=== PATIENT | female | born 1935 | race Caucasian/White ===

== ENCOUNTER 2017-08-29 22:22 | Emergency (ER) | payer MEDICARE ==
[2017-08-29 22:42] VITALS: BP 171/64
--- NOTE | 2017-08-29 23:56 | EDM.PDOC ---
ED HPI GENERAL MEDICAL PROBLEM - General Chief Complaint: Lower Extremity Injury/Pain Stated Complaint: FELL Time Seen by Provider: 08/29/17 22:45 Source of Information: Reports: Patient, Family History Limitations: Reports: No Limitations - History of Present Illness INITIAL COMMENTS - FREE TEXT/NARRATIVE: pt arrived with acute pain behind the knee cap of the rt knee. She tripped over hr cat tonight and she twisted the knee. She does not feel any pain in the hip area. Onset: Today, Sudden Duration: Hour(s): Location: Reports: Lower Extremity, Right Associated Symptoms: Reports: No Other Symptoms Right Knee Pain Score (Numeric/FACES): 5 - Related Data Allergies Allergy/AdvReac Type Severity Reaction Status Date / Time No Known Allergies Allergy Verified 08/29/17 22:54 Home Meds: Home Meds Aspirin [Halfprin] 81 mg PO DAILY 04/16/15 [History] Metoprolol Tartrate [Metoprolol Tartrate] 25 mg PO DAILY 04/16/15 [History] Ranitidine [Zantac] 150 mg PO DAILY PRN 04/16/15 [History] Past Medical History HEENT History: Reports: Impaired Vision Cardiovascular History: Reports: CAD, Hypertension, Prior Cardiac Arrest Gastrointestinal History: Reports: PUD Musculoskeletal History: Reports: Fracture Other Musculoskeletal History: 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 Other Endocrine/Metabolic History: Lymes disease - Past Surgical History Other HEENT Surgeries/Procedures: teeth removed Cardiovascular Surgical History: Reports: Coronary Artery Stent GI Surgical History: Reports: Other (See Below) Musculoskeletal Surgical History: Reports: Other (See Below) Other Musculoskeletal Surgeries/Procedures:: ankle surgery Social & Family History - Tobacco Use Smoking Status *Q: Light Tobacco Smoker Years of Tobacco use: 64 Packs/Tins Daily: 0.5 - Alcohol Use Days Per Week of Alcohol Use: 0 - Recreational Drug Use Recreational Drug Use: No Review of Systems - Review of Systems Review Of Systems: See Below Constitutional: Reports: No Symptoms Eyes: Reports: No Symptoms Ears: Reports: No Symptoms Nose: Reports: No Symptoms Mouth/Throat: Reports: No Symptoms Respiratory: Reports: No Symptoms Cardiovascular: Reports: No Symptoms GI/Abdominal: Reports: No Symptoms Genitourinary: Reports: No Symptoms Musculoskeletal: Reports: Other (Pt has pain in the rt knee. ) ED EXAM, GENERAL - Physical Exam Exam: See Below Free Text/Narrative:: Pt arrived with pain behind the rt knee cap. She hurts most when she moves the joint. Exam Limited By: No Limitations General Appearance: Alert, Anxious, Mild Distress Ears: Normal TMs Nose: Normal Inspection Throat/Mouth: Normal Inspection Head: Atraumatic Neck: Normal Inspection Respiratory/Chest: No Respiratory Distress Cardiovascular: Regular Rate, Rhythm GI/Abdominal: Soft, Non-Tender (Female) Exam: Deferred Rectal (Female) Exam: Deferred Back Exam: Other (pt has a marked scoliosis of the t and lumbar spine. ) Extremities: Other (pt has pain behind the rt knee cap. There is minimal swelling present. She has some tenderness over the lower femur and upper tib- fib area. ) Neurological: Alert, Oriented Psychiatric: Normal Affect Course - Vital Signs Last Recorded V/S: Last Vital Signs Temp 37.2 C 08/29/17 22:53 Pulse 87 08/29/17 22:53 Resp 16 08/29/17 22:53 BP 171/64 H 08/29/17 22:53 Pulse Ox 98 08/29/17 22:53 - Orders/Labs/Meds Orders: Active Orders 24 hr Category Date Time Status Femur Min 2V Rt [CR] Stat Exams 08/29/17 23:15 Taken Knee Min 4V Rt [CR] Stat Exams 08/29/17 23:15 Taken Tibia Fibula Rt [CR] Stat Exams 08/29/17 23:15 Taken - Re-Assessments/Exams Free Text/Narrative Re-Assessment/Exam: 08/30/17 00:02 xrays of the femur, tib-fib and knee were obtained. These did not reveal a fracture. Departure - Departure Time of Disposition: 23:54 Disposition: Home, Self-Care 01 Condition: Fair Clinical Impression: Right knee sprain - Discharge Information Referrals: Hernandez Chance MD [Primary Care Provider] - Forms: ED Department Discharge Care Plan Goals: knee imoblizer, cont to use the cane, ice to the knee, use alieve or motrin. Pt did not want other pain meds. If persistent pain may need further evaluation with an MRI. - My Orders Last 24 Hours: My Active Orders 08/29/17 23:15 Femur Min 2V Rt [CR] Stat Knee Min 4V Rt [CR] Stat Tibia Fibula Rt [CR] Stat - Assessment/Plan Last 24 Hours: My Active Orders 08/29/17 23:15 Femur Min 2V Rt [CR] Stat Knee Min 4V Rt [CR] Stat Tibia Fibula Rt [CR] Stat
--- NOTE | 2017-08-30 10:25 | CR ---
Femur Min 2V Rt, Knee Min 4V Rt, Tibia Fibula Rt HISTORY: Pain COMPARISON: None FINDINGS: The right femur appears normal. The right tibia and fibula demonstrate prior internal fixat ion of the medial and lateral malleolus. No fracture or bony destructive process seen. The right knee demonstrates a very mild loss of joint space medially. No fracture or effusion. No bon y destructive process Impression: 1. Negative right femur, knee and tibia-fibula.
== END 2017-08-30 00:23 | disposition home or self-care (01) ==
LOC: JP.ED 22:22
DX: S83.91XA Sprain of unspecified site of right knee, initial encounter (principal); I10 Essential (primary) hypertension; I25.10 Atherosclerotic heart disease of native coronary artery without angina pectoris; Z95.5 Presence of coronary angioplasty implant and graft; F17.210 Nicotine dependence, cigarettes, uncomplicated; Z79.82 Long term (current) use of aspirin; Z79.899 Other long term (current) drug therapy; W01.0XXA Fall on same level from slipping, tripping and stumbling without subsequent striking against object, initial encounter; X50.1XXA Overexertion from prolonged static or awkward postures, initial encounter
CPT/HCPCS: 73552-26-LT; 73552-RT; 73564-26-RT; 73564-RT; 73590-26-RT; 73590-RT; 99283; 99284

== ENCOUNTER 2018-10-01 11:00 | Emergency (ER) | payer MEDICARE ==
[2018-10-01] MEDS ORDERED: Sodium Chloride 0.9% 10 ML Syringe FLUSH PRN (11:45)
[2018-10-01] MEDS ORDERED: Sodium Chloride 0.9% 1,000 ML IV ONE (12:13)
--- NOTE | 2018-10-01 12:57 | CRLCR ---
HISTORY: Chest pain. FINDINGS: Single AP view of the chest is provided. Comparison is made to previous study dated 03/10/2007. There is new increased density at the left lung base with blunting of the costophrenic angle consistent with likely pleural fluid. There could also be additional compressive atelectasis or pneumonia in the left lower lobe. The upper portion of the left lung and right lung are clear. There is no evidence for pneumothorax. Cardiac silhouette size appears enlarged but this could be due to AP magnification. There is a severe S-shaped scoliosis of the thoracolumbar spine which is noted previously. IMPRESSION: New abnormal density at the left lung base consistent with moderate pleural effusion. There may also be an additional abnormality such as compressive atelectasis or pneumonia in the left lower lobe. Dictated by Peng Perez MD @ Oct 01 2018 12:56PM Signed by Dr. Peng Perez @ Oct 01 2018 12:56PM
--- NOTE | 2018-10-01 14:04 | EDM.PDOC ---
ED HPI GENERAL MEDICAL PROBLEM - General Chief Complaint: General Stated Complaint: HARD TIME CATCHING BREATHE Time Seen by Provider: 10/01/18 11:38 Source of Information: Reports: Patient, Family History Limitations: Reports: No Limitations - History of Present Illness INITIAL COMMENTS - FREE TEXT/NARRATIVE: This lady comes in complaining of anxiety. She doesn't know why she is anxious she just doesn't feel right. She did mention that she can a felt this way when she had a heart attack several years ago. Her daughter notices that she looks a little bit pale today. Otherwise she feels fine review of systems no problems with eyes ears nose or throat. No chest pain or palpitations no cough or shortness of breath no GI symptoms such as nausea or vomiting. No urinary symptoms and no neurologic symptoms. - Related Data Allergies Allergy/AdvReac Type Severity Reaction Status Date / Time No Known Allergies Allergy Verified 10/01/18 11:12 Home Meds: Home Meds Aspirin [Halfprin] 81 mg PO DAILY 04/16/15 [History] Metoprolol Tartrate 25 mg PO DAILY 04/16/15 [History] Ranitidine [Zantac] 150 mg PO DAILY PRN 04/16/15 [History] Past Medical History HEENT History: Reports: Impaired Vision Cardiovascular History: Reports: CAD, High Cholesterol, Hypertension, Prior Cardiac Arrest, Stents Gastrointestinal History: Reports: PUD [employer]ER History: Reports: Musculoskeletal History: Reports: Fracture Other Musculoskeletal History: 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 Psychiatric History: Reports: Anxiety Other Endocrine/Metabolic History: Lymes disease Hematologic History: Reports: Blood Transfusion(s) - Infectious Disease History Infectious Disease History: Reports: Chicken Pox, Measles, Mumps, Other (See Below) Other Infectious Disease History: Polio - Past Surgical History Head Surgeries/Procedures: Reports: None HEENT Surgical History: Reports: Other (See Below) Other HEENT Surgeries/Procedures: teeth removed Cardiovascular Surgical History: Reports: Coronary Artery Stent GI Surgical History: Reports: Other (See Below) Musculoskeletal Surgical History: Reports: Other (See Below) Other Musculoskeletal Surgeries/Procedures:: ankle surgery Dermatological Surgical History: Reports: None Social & Family History - Family History Family Medical History: Noncontributory - Tobacco Use Smoking Status *Q: Current Every Day Smoker Years of Tobacco use: 67 Packs/Tins Daily: 0.5 Used Tobacco, but Quit: No - Caffeine Use Caffeine Use: Reports: Coffee - Recreational Drug Use Recreational Drug Use: No ED ROS GENERAL - Review of Systems Review Of Systems: ROS reveals no pertinent complaints other than HPI. (See review of systems at end of history of present illness) ED EXAM, GENERAL - Physical Exam Exam: See Below Exam Limited By: No Limitations General Appearance: Alert, No Apparent Distress (She seems comfortable. Slightly grayish look), Thin Eye Exam: Bilateral Eye: EOMI, PERRL Ears: Normal External Exam Nose: Normal Inspection Throat/Mouth: Normal Inspection, Normal Oropharynx Head: Atraumatic Neck: Normal Inspection Respiratory/Chest: Lungs Clear Cardiovascular: Normal Peripheral Pulses, Regular Rate, Rhythm Peripheral Pulses: 2+: Radial (L), Radial (R) GI/Abdominal: Normal Bowel Sounds, Soft, Non-Tender Back Exam: Normal Inspection Extremities: Normal Inspection Neurological: Alert, Oriented, CN II-XII Intact, Normal Cognition, No Motor/ Sensory Deficits Psychiatric: Normal Affect Skin Exam: Warm, Dry, Normal Color (See above) Course - Vital Signs Last Recorded V/S: Last Vital Signs Temp 35.9 C 10/01/18 11:19 Pulse 68 10/01/18 12:38 Resp 16 10/01/18 12:38 BP 150/72 H 10/01/18 15:26 Pulse Ox 96 10/01/18 12:38 - Orders/Labs/Meds Orders: Active Orders 24 hr Category Date Time Status EKG Documentation Completion [RC] ASDIRECTED Care 10/01/18 11:44 Active Sodium Chloride 0.9% [Saline Flush] Med 10/01/18 11:45 Active 10 ml FLUSH ASDIRECTED PRN Saline Lock Insert [OM.PC] Urgent Oth 10/01/18 11:45 Ordered EKG 12 Lead [EK] Urgent Ther 10/01/18 11:44 Ordered Medication Orders Sodium Chloride (Saline Flush) 10 ml FLUSH ASDIRECTED PRN PRN Reason: Keep Vein Open Last Admin: 10/01/18 12:01 Dose: 10 ml Labs: Laboratory Tests 10/01/18 10/01/18 10/01/18 Range/Units 11:45 11:55 11:55 WBC 6.6 (4.5-11.0) K/uL RBC 3.85 (3.30-5.50) M/uL Hgb 12.0 (12.0-15.0) g/dL Hct 36.3 (36.0-48.0) % MCV 94 (80-98) fL MCH 31 (27-31) pg MCHC 33 (32-36) % Plt Count 208 (150-400) K/uL Neut % (Auto) 70 H (36-66) % Lymph % (Auto) 22 L (24-44) % Cassia % (Auto) 7 H (2-6) % Eos % (Auto) 1 L (2-4) % Baso % (Auto) 1 (0-1) % Sodium 142 (140-148) mmol/L Potassium 3.7 (3.6-5.2) mmol/L Chloride 107 (100-108) mmol/L Carbon Dioxide 25 (21-32) mmol/L Anion Gap 9.6 (5.0-14.0) mmol/L BUN 14 (7-18) mg/dL Creatinine 0.9 (0.6-1.0) mg/dL Est Cr Clr Drug Dosing 35.21 mL/min Estimated GFR (MDRD) > 60 (>60) Glucose 97 (74-106) mg/dL Lactic Acid 1.2 (0.4-2.0) mmol/L Calcium 9.3 (8.5-10.1) mg/dL Total Bilirubin 0.6 (0.2-1.0) mg/dL AST 17 (15-37) U/L ALT 16 (12-78) U/L Alkaline Phosphatase 105 (46-116) U/L Troponin I 0.027 (0.000-0.056) ng/mL Total Protein 6.7 (6.4-8.2) g/dL Albumin 2.9 L (3.4-5.0) g/dL Globulin 3.8 H (2.3-3.5) g/dL Albumin/Globulin Ratio 0.8 L (1.2-2.2) Urine Color Urine Appearance Urine pH (4.5-8.0) Ur Specific [place] (1.008-1.030) Urine Protein (NEGATIVE) mg/dL Urine Glucose (UA) (NEGATIVE) mg/dL Urine Ketones (NEGATIVE) mg/dL Urine Occult Blood (NEGATIVE) Urine Nitrite (NEGATIVE) Urine Bilirubin (NEGATIVE) Urine Urobilinogen (NORMAL) mg/dL Ur Leukocyte Esterase (NEGATIVE) Urine RBC (0-5) Urine WBC (0-5) Ur Epithelial Cells Amorphous Sediment Urine Bacteria Urine Mucus 10/01/18 10/01/18 Range/Units 12:41 14:38 WBC (4.5-11.0) K/uL RBC (3.30-5.50) M/uL Hgb (12.0-15.0) g/dL Hct (36.0-48.0) % MCV (80-98) fL MCH (27-31) pg MCHC (32-36) % Plt Count (150-400) K/uL Neut % (Auto) (36-66) % Lymph % (Auto) (24-44) % Cassia % (Auto) (2-6) % Eos % (Auto) (2-4) % Baso % (Auto) (0-1) % Sodium (140-148) mmol/L Potassium (3.6-5.2) mmol/L Chloride (100-108) mmol/L Carbon Dioxide (21-32) mmol/L Anion Gap (5.0-14.0) mmol/L BUN (7-18) mg/dL Creatinine (0.6-1.0) mg/dL Est Cr Clr Drug Dosing mL/min Estimated GFR (MDRD) (>60) Glucose (74-106) mg/dL Lactic Acid (0.4-2.0) mmol/L Calcium (8.5-10.1) mg/dL Total Bilirubin (0.2-1.0) mg/dL AST (15-37) U/L ALT (12-78) U/L Alkaline Phosphatase (46-116) U/L Troponin I 0.025 (0.000-0.056) ng/mL Total Protein (6.4-8.2) g/dL Albumin (3.4-5.0) g/dL Globulin (2.3-3.5) g/dL Albumin/Globulin Ratio (1.2-2.2) Urine Color Yellow Urine Appearance Clear Urine pH 8.0 (4.5-8.0) Ur Specific [place] 1.010 (1.008-1.030) Urine Protein Negative (NEGATIVE) mg/dL Urine Glucose (UA) Normal (NEGATIVE) mg/dL Urine Ketones Negative (NEGATIVE) mg/dL Urine Occult Blood Negative (NEGATIVE) Urine Nitrite Negative (NEGATIVE) Urine Bilirubin Negative (NEGATIVE) Urine Urobilinogen Normal (NORMAL) mg/dL Ur Leukocyte Esterase Negative (NEGATIVE) Urine RBC 0-5 (0-5) Urine WBC 0-5 (0-5) Ur Epithelial Cells Many Amorphous Sediment Moderate Urine Bacteria Not seen Urine Mucus Not seen Meds: Medications Generic Name Dose Route Start Last Admin Trade Name Freq PRN Reason Stop Dose Admin Sodium Chloride 10 ml 10/01/18 11:45 10/01/18 12:01 Saline Flush FLUSH 10 ml ASDIRECTED PRN Administration Keep Vein Open Discontinued Medications Generic Name Dose Route Start Last Admin Trade Name Freq PRN Reason Stop Dose Admin Sodium Chloride 1,000 mls @ 999 mls/hr 10/01/18 12:13 10/01/18 12:19 Normal Saline IV 10/01/18 13:13 999 mls/hr .BOLUS ONE Administration - Re-Assessments/Exams Free Text/Narrative Re-Assessment/Exam: 10/01/18 13:56 We were having low blood pressures on this lady so I began giving her a fluid bolus prior to the chest x-ray. Lipid pressures continue to be low even after a liter of normal saline. Her color did improve a lot. At no time has she had any mental status changes. She's always been quite alert and comfortable. The nurse attempted to do a manual blood pressure but still got low readings. I did a manual blood pressures and got 130/70 on the left arm and 162/80 on the right arm. I immediately checked with the machine and the machine refused to register at all 10/01/18 15:43 initial EKG showed sinus rhythm at 69 bpm possibly some left atrial enlargement there is LVH and interventricular conduction delay with a repolarization abnormality slightly prolonged QT interval definitely no ischemic changes here. The only old EKG was 2013 when she had her [place]. At time of discharge I repeated a three-hour troponin which is negative. She says she feels pretty much back to normal. She doesn't want any kind of medication in case she has more anxiety at home. She seems happy with our treatment Departure - Departure Time of Disposition: 15:44 Disposition: Home, Self-Care 01 Condition: Fair Clinical Impression: Acute anxiety - Discharge Information Referrals: Hernandez Chance MD [Primary Care Provider] - Forms: ED Department Discharge Additional Instructions: Continue all your usual medications. If you have more problems you're welcome to return to the ER - My Orders Last 24 Hours: My Active Orders 10/01/18 11:44 EKG Documentation Completion [RC] ASDIRECTED EKG 12 Lead [EK] Urgent 10/01/18 11:45 Sodium Chloride 0.9% [Saline Flush] 10 ml FLUSH ASDIRECTED PRN Saline Lock Insert [OM.PC] Urgent - Assessment/Plan Last 24 Hours: My Active Orders 10/01/18 11:44 EKG Documentation Completion [RC] ASDIRECTED EKG 12 Lead [EK] Urgent 10/01/18 11:45 Sodium Chloride 0.9% [Saline Flush] 10 ml FLUSH ASDIRECTED PRN Saline Lock Insert [OM.PC] Urgent
[2018-10-01 15:26] VITALS: BP 150/72
== END 2018-10-01 15:52 | disposition home or self-care (01) ==
LOC: JP.ED 11:00
DX: F41.9 Anxiety disorder, unspecified (principal); I10 Essential (primary) hypertension; E78.00 Pure hypercholesterolemia, unspecified; F17.210 Nicotine dependence, cigarettes, uncomplicated; Z79.82 Long term (current) use of aspirin; Z79.899 Other long term (current) drug therapy
CPT/HCPCS: 36415; 71045; 80053; 81001; 83605; 84484; 85025; 93005; 99284; J7030

== ENCOUNTER 2018-10-03 10:50 | Emergency (ER) | payer MEDICARE ==
[2018-10-03] MEDS ORDERED: ALPRAZolam 0.25 MG Tab PO ONE (11:18)
--- NOTE | 2018-10-03 11:58 | EDM.PDOC ---
ED HPI GENERAL MEDICAL PROBLEM - General Chief Complaint: General Stated Complaint: EXTREME ANXIETY Time Seen by Provider: 10/03/18 11:45 Source of Information: Reports: Patient, Family, Old Records, RN History Limitations: Reports: No Limitations - History of Present Illness INITIAL COMMENTS - FREE TEXT/NARRATIVE: 83 yo female was given a few alprazolam 0.125 mg doses yesterday with the understanding that she would see Dr. Chance today. She ran out and cannot see him until tomorrow. He would not give her more, but asked that she return to the ER for additional doses if needed. She states she felt much better with this med. She states the current anxiety is new and has no idea why she is having this. She also has not been sleeping for sometime, with this new med she is getting a few hrs of sleep. She has no hx of HTN above 140 systolic and is no longer on the metoprolol tartrate listed in our EMR. 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 (see below) (none) - Related Data Allergies Allergy/AdvReac Type Severity Reaction Status Date / Time No Known Allergies Allergy Verified 10/03/18 10:56 Home Meds: Home Meds Aspirin [Halfprin] 81 mg PO DAILY 04/16/15 [History] Metoprolol Tartrate 25 mg PO DAILY 04/16/15 [History] Ranitidine [Zantac] 150 mg PO DAILY PRN 04/16/15 [History] ALPRAZolam [Alprazolam] 0.125 mg PO TID PRN 10/03/18 [History] Past Medical History HEENT History: Reports: Impaired Vision Cardiovascular History: Reports: CAD, High Cholesterol, Hypertension, Prior Cardiac Arrest, Stents Gastrointestinal History: Reports: PUD [employer]ARD [employer]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 History: Reports: Musculoskeletal History: Reports: Fracture Other Musculoskeletal History: 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 Psychiatric History: Reports: Anxiety Other Endocrine/Metabolic History: Lymes disease Hematologic History: Reports: Blood Transfusion(s) - Infectious Disease History Infectious Disease History: Reports: Chicken Pox, Measles, Mumps, Other (See Below) Other Infectious Disease History: Polio - Past Surgical History Head Surgeries/Procedures: Reports: None HEENT Surgical History: Reports: Other (See Below) Other HEENT Surgeries/Procedures: teeth removed Cardiovascular Surgical History: Reports: Coronary Artery Stent GI Surgical History: Reports: Other (See Below) Musculoskeletal Surgical History: Reports: Other (See Below) Other Musculoskeletal Surgeries/Procedures:: ankle surgery Dermatological Surgical History: Reports: None Social & Family History - Family History Family Medical History: Noncontributory - Tobacco Use Smoking Status *Q: Former Smoker Used Tobacco, but Quit: Yes Month/Year Tobacco Last Used: . - Caffeine Use Caffeine Use: Reports: Coffee - Recreational Drug Use Recreational Drug Use: No ED ROS GENERAL - Review of Systems Review Of Systems: See Below Constitutional: Reports: No Symptoms HEENT: Reports: No Symptoms Respiratory: Reports: No Symptoms Cardiovascular: Reports: No Symptoms Endocrine: Reports: No Symptoms GI/Abdominal: Reports: No Symptoms : Reports: No Symptoms Musculoskeletal: Reports: No Symptoms Skin: Reports: No Symptoms Neurological: Reports: No Symptoms Psychiatric: Reports: Anxiety, Other (insomnia) ED EXAM, GENERAL - Physical Exam Exam: See Below Exam Limited By: No Limitations General Appearance: Alert, WD/WN, No Apparent Distress, Anxious Eye Exam: Bilateral Eye: Normal Inspection Ears: Normal External Exam, Normal Canal, Hearing Grossly Normal Ear Exam: Bilateral Ear: Auricle Normal, Canal Normal Nose: Normal Inspection, No Blood Throat/Mouth: Normal Inspection, Normal Lips, Normal Oropharynx, Normal Voice, No Airway Compromise Head: Atraumatic, Normocephalic Respiratory/Chest: No Respiratory Distress, Lungs Clear, Normal Breath Sounds, No Accessory Muscle Use Cardiovascular: Regular Rate, Rhythm, No Edema Back Exam: Normal Inspection Extremities: Normal Inspection, Normal Range of Motion, Non-Tender, No Pedal Edema Neurological: Alert, Oriented, CN II-XII Intact, Normal Cognition, No Motor/ Sensory Deficits Psychiatric: Normal Affect, Normal Mood Skin Exam: Warm, Dry, Intact, Normal Color, No Rash Course - Vital Signs Text/Narrative:: BP reassessed after the alprazolam, improved to 146 systolic Last Recorded V/S: Last Vital Signs Temp 36.1 C 10/03/18 11:05 Pulse 71 10/03/18 12:06 Resp 16 10/03/18 12:06 BP 146/89 H 10/03/18 12:06 Pulse Ox 97 10/03/18 11:05 - Orders/Labs/Meds Meds: Medications Discontinued Medications Generic Name Dose Route Start Last Admin Trade Name Sandra PRN Reason Stop Dose Admin Alprazolam 0.125 mg 10/03/18 11:18 10/03/18 11:43 Xanax PO 10/03/18 11:19 0.125 mg NOW ONE Administration Departure - Departure Time of Disposition: 12:10 Disposition: Home, Self-Care 01 Condition: Good Clinical Impression: Anxiety - Discharge Information *PRESCRIPTION DRUG MONITORING PROGRAM REVIEWED*: No *COPY OF PRESCRIPTION DRUG MONITORING REPORT IN PATIENT RADHA: No Instructions: Generalized Anxiety Disorder, Adult Referrals: Hernandez Chance MD [Primary Care Provider] - Forms: ED Department Discharge Additional Instructions: Take alprazolam as needed. See your doctor tomorrow as scheduled.
[2018-10-03 12:07] VITALS: BP 146/89
== END 2018-10-03 12:17 | disposition home or self-care (01) ==
LOC: JP.ED 10:50
DX: F41.9 Anxiety disorder, unspecified (principal); I25.10 Atherosclerotic heart disease of native coronary artery without angina pectoris; E78.00 Pure hypercholesterolemia, unspecified; I10 Essential (primary) hypertension; Z79.82 Long term (current) use of aspirin; Z79.899 Other long term (current) drug therapy; Z87.891 Personal history of nicotine dependence
CPT/HCPCS: 99283; A9270

== ENCOUNTER 2018-11-21 12:32 | Emergency (ER) | payer MEDICARE ==
--- NOTE | 2018-11-21 13:17 | EDM.PDOC ---
ED HPI GENERAL MEDICAL PROBLEM - General Chief Complaint: Respiratory Problem Stated Complaint: SOB, CONFUSSED Time Seen by Provider: 11/21/18 13:09 Source of Information: Reports: Patient, Family, Old Records, RN Notes Reviewed History Limitations: Reports: No Limitations - History of Present Illness INITIAL COMMENTS - FREE TEXT/NARRATIVE: 83-year-old female presents emergency department day complaint of shortness of breath and anxiety, she has a known history of underlying generalized anxiety disorder of which she is treated with both citalopram and lorazepam, she is trying to wean herself off the lorazepam has been on the citalopram for one month. This evening she had an event about to the morning felt she could not breathe and could not catch her wind then she became very panicky presents to the emergency department for further evaluation Bilateral Knee Pain Score (Numeric/FACES): 3 - Related Data Allergies Allergy/AdvReac Type Severity Reaction Status Date / Time No Known Allergies Allergy Verified 11/21/18 12:54 Home Meds: Home Meds Aspirin [Halfprin] 81 mg PO DAILY 04/16/15 [History] Ranitidine [Zantac] 150 mg PO DAILY PRN 04/16/15 [History] Citalopram Hydrobromide [Citalopram HBr] 10 mg PO DAILY 11/21/18 [History] LORazepam 0.5 mg PO TID 11/21/18 [History] Past Medical History HEENT History: Reports: Impaired Vision Cardiovascular History: Reports: CAD, High Cholesterol, Hypertension, Prior Cardiac Arrest, Stents Respiratory History: Reports: COPD Gastrointestinal History: Reports: PUD Genitourinary History: Reports: Urinary Incontinence 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: Musculoskeletal History: Reports: Fracture Other Musculoskeletal History: 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 Neurological History: Reports: TIA 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 Psychiatric History: Reports: Anxiety, Suicidal Ideation Other Endocrine/Metabolic History: Lymes disease Hematologic History: Reports: Blood Transfusion(s) - Infectious Disease History Infectious Disease History: Reports: Chicken Pox, Measles, Mumps, Other (See Below) Other Infectious Disease History: Polio - Past Surgical History Head Surgeries/Procedures: Reports: None HEENT Surgical History: Reports: Other (See Below) Other HEENT Surgeries/Procedures: teeth removed Cardiovascular Surgical History: Reports: Coronary Artery Stent Musculoskeletal Surgical History: Reports: Other (See Below) Other Musculoskeletal Surgeries/Procedures:: ankle surgery Dermatological Surgical History: Reports: None Social & Family History - Family History Family Medical History: Noncontributory - Tobacco Use Years of Tobacco use: 67 Tobacco Use Comment: current some day smoker - Caffeine Use Caffeine Use: Reports: Coffee - Recreational Drug Use Recreational Drug Use: No ED ROS GENERAL - Review of Systems Review Of Systems: See Below Constitutional: Reports: No Symptoms HEENT: Reports: No Symptoms Respiratory: Reports: Shortness of Breath. Denies: Wheezing, Cough, Sputum Cardiovascular: Reports: Dyspnea on Exertion. Denies: Chest Pain GI/Abdominal: Reports: No Symptoms ED EXAM, GENERAL - Physical Exam Exam: See Below Exam Limited By: No Limitations General Appearance: Alert, WD/WN, No Apparent Distress Respiratory/Chest: No Respiratory Distress, Lungs Clear, Normal Breath Sounds, No Accessory Muscle Use Cardiovascular: Regular Rate, Rhythm, No Murmur GI/Abdominal: Soft, Non-Tender Back Exam: Normal Inspection, Full Range of Motion. No: CVA Tenderness (R), CVA Tenderness (L) Psychiatric: Normal Affect, Normal Mood Course - Vital Signs Last Recorded V/S: Last Vital Signs Temp 97.2 F 11/21/18 12:52 Pulse 61 11/21/18 13:57 Resp 14 11/21/18 13:57 BP 138/69 11/21/18 13:57 Pulse Ox 95 11/21/18 13:57 - Orders/Labs/Meds Orders: Active Orders 24 hr Category Date Time Status Chest 2V [CR] Urgent Exams 11/21/18 13:13 Taken Labs: Laboratory Tests 11/21/18 11/21/18 Range/Units 13:25 13:25 WBC 5.6 (4.5-11.0) K/uL RBC 3.37 (3.30-5.50) M/uL Hgb 10.4 L (12.0-15.0) g/dL Hct 31.7 L (36.0-48.0) % MCV 94 (80-98) fL MCH 31 (27-31) pg MCHC 33 (32-36) % Plt Count 193 (150-400) K/uL Neut % (Auto) 63 (36-66) % Lymph % (Auto) 27 (24-44) % [place] % (Auto) 9 H (2-6) % Eos % (Auto) 1 L (2-4) % Baso % (Auto) 1 (0-1) % Sodium 139 L (140-148) mmol/L Potassium 3.3 L (3.6-5.2) mmol/L Chloride 106 (100-108) mmol/L Carbon Dioxide 27 (21-32) mmol/L Anion Gap 9.3 (5.0-14.0) mmol/L BUN 14 (7-18) mg/dL Creatinine 0.7 (0.6-1.0) mg/dL Est Cr Clr Drug Dosing 45.27 mL/min Estimated GFR (MDRD) > 60 (>60) Glucose 86 (74-106) mg/dL Calcium 8.9 (8.5-10.1) mg/dL Troponin I 0.034 (0.000-0.056) ng/mL Departure - Departure Time of Disposition: 14:41 Disposition: Home, Self-Care 01 Condition: Fair Clinical Impression: Panic attack - Discharge Information Referrals: Hernandez Chance MD [Primary Care Provider] - Forms: ED Department Discharge Additional Instructions: Increase your citalopram from 10 mg a day to 20 mg a day, use your lorazepam as needed for the increased anxiety and shortness of breath sensations try to follow-up with primary care in 5-7 days for reevaluation, call or return to the emergency department worsening of symptoms - My Orders Last 24 Hours: My Active Orders 11/21/18 13:13 Chest 2V [CR] Urgent - Assessment/Plan Last 24 Hours: My Active Orders 11/21/18 13:13 Chest 2V [CR] Urgent Plan: Assessment Acuity = acute Site and laterality = panic attack, again the patient with known history of chronic obstructive pulmonary disease and generalized anxiety disorder Etiology = generalized anxiety causing dyspnea Manifestations = none Location of injury = Home Lab values = hemoglobin low at 10.4 consistent normochromic anemia this is a change from 12.02 months ago potassium low at 3.3 consistent hypokalemia troponin was negative and chest x-ray shows I did review films myself I cannot appreciate any acute process, the official read from radiology is pending Plan She is going to increase her citalopram from 10 mg once a day to 20 mg once a day and use her lorazepam on a when necessary basis she'll try and follow-up with primary care in 7-10 days for reevaluation This note was dictated using [employer]! voice recognition software please call with any questions on syntax or grammar.
[2018-11-21 13:58] VITALS: BP 138/69
--- NOTE | 2018-11-21 15:12 | CR ---
CHEST RADIOGRAPHS PA AND LATERAL Indication: Shortness of breath comparison: 10/01/2018 Findings: Small to moderate size left greater right pleural effusion remain present. Bibasilar opacities remain present, slightly progressed since the prior exam. These may relate to atelectasis and/or infection. Cardiomediastinal silhouette is enlarged but is stable in size and contour. Mild pulmonary venous congestion and a background of chronic emphysematous change are again identified. Pulmonary venous congestion has progressed slightly since the prior exam. Severe dextroconvex thoracic scoliosis is again noted. Impression 1. Slight interval worsening in pulmonary venous congestion/mild interstitial edema and associated small left greater than right pleural effusions. Bibasilar opacities have also slightly progressed which may relate to atelectasis and/or infection. 2. Cardiomegaly. 3. Dextroconvex thoracic scoliosis.
== END 2018-11-21 14:53 | disposition home or self-care (01) ==
LOC: JP.ED 12:32
DX: F41.0 Panic disorder [episodic paroxysmal anxiety] (principal); J44.9 Chronic obstructive pulmonary disease, unspecified; I25.10 Atherosclerotic heart disease of native coronary artery without angina pectoris; E78.00 Pure hypercholesterolemia, unspecified; I10 Essential (primary) hypertension; F17.290 Nicotine dependence, other tobacco product, uncomplicated; Z79.82 Long term (current) use of aspirin; Z79.899 Other long term (current) drug therapy
CPT/HCPCS: 36415; 71046; 71046-26; 80048; 84484; 85025; 99285-25

== ENCOUNTER 2019-02-17 12:23 | Emergency (ER) | payer MEDICARE ==
[2019-02-17] MEDS ORDERED: Sodium Chloride 0.9% 1,000 ML IV ONE (12:29)
[2019-02-17] MEDS ORDERED: Sodium Chloride 0.9% 80 ML IV ONE (12:32)
[2019-02-17] MEDS ORDERED: Morphine 2 MG/ML Syringe IVPUSH ONE (12:35)
--- NOTE | 2019-02-17 12:43 | EDM.PDOC ---
ED HPI GENERAL MEDICAL PROBLEM - General Chief Complaint: Abdominal Pain Stated Complaint: SEVERE ABD PAIN Time Seen by Provider: 02/17/19 12:23 Source of Information: Reports: Family History Limitations: Reports: Other (in pain, unable to give hx) - History of Present Illness INITIAL COMMENTS - FREE TEXT/NARRATIVE: Chen is an 84 year old female, presents to the ED today via private vehicle with her daughter, daughter reports that patient woke up this morning and started to complain of severe abdominal pain. Patient had one episode of vomiting that was brown in color, had a normal BM that was not bloody or dark per daughter. Patient's pain progressed and daughter had to physically lift her out of the car to bring her here. Patient unable to give much hx secondary to pain, yelled and screamed of abdominal pain when assisting patient out of the car and again onto ED cart. Patient does have a hx of a gastric ulcer per her daughter and takes Zantac as needed. Patient prior to today was fine per daughter, no hx of aortic aneurysm per daughter. Movement exacerbates pain, patient denies any pain into her back. Onset: Today, Sudden Onset Time: 09:00 Right Middle Abdominal Pain Score (Numeric/FACES): 10 - Related Data Allergies Allergy/AdvReac Type Severity Reaction Status Date / Time No Known Allergies Allergy Verified 11/21/18 12:54 Home Meds: Home Meds Aspirin [Halfprin] 81 mg PO DAILY 04/16/15 [History] Ranitidine [Zantac] 150 mg PO DAILY PRN 04/16/15 [History] Citalopram Hydrobromide [Citalopram HBr] 10 mg PO DAILY 11/21/18 [History] LORazepam 0.5 mg PO TID 11/21/18 [History] Past Medical History HEENT History: Reports: Impaired Vision Cardiovascular History: Reports: CAD, High Cholesterol, Hypertension, Prior Cardiac Arrest, Stents Respiratory History: Reports: COPD Gastrointestinal History: Reports: PUD Genitourinary History: Reports: Urinary Incontinence 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: Musculoskeletal History: Reports: Fracture Other Musculoskeletal History: 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 Neurological History: Reports: TIA 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 Psychiatric History: Reports: Anxiety, Suicidal Ideation Other Endocrine/Metabolic History: Lymes disease Hematologic History: Reports: Blood Transfusion(s) - Infectious Disease History Infectious Disease History: Reports: Chicken Pox, Measles, Mumps, Other (See Below) Other Infectious Disease History: Polio - Past Surgical History Head Surgeries/Procedures: Reports: None HEENT Surgical History: Reports: Other (See Below) Other HEENT Surgeries/Procedures: teeth removed Cardiovascular Surgical History: Reports: Coronary Artery Stent Musculoskeletal Surgical History: Reports: Other (See Below) Other Musculoskeletal Surgeries/Procedures:: ankle surgery Dermatological Surgical History: Reports: None Social & Family History - Family History Family Medical History: Noncontributory - Caffeine Use Caffeine Use: Reports: Coffee ED ROS GENERAL - Review of Systems Review Of Systems: ROS reveals no pertinent complaints other than HPI. ED EXAM, GI/ABD - Physical Exam Exam: See Below Exam Limited By: Other (in pain, uncomfortable) General Appearance: Alert, Moderate Distress Eyes: Bilateral: EOMI Throat/Mouth: Other (dry mucus membranes) Head: Atraumatic Neck: Normal Inspection Respiratory/Chest: No Respiratory Distress, Lungs Clear Cardiovascular: Other (Irregular rhythm) GI/Abdominal Exam: Soft, Tender (mid abdomen, lower abdomen at midline, epigastric region) Neurological: Alert, Slow to Respond Skin Exam: Cool, Pallor EKG INTERPRETATION EKG Date: 02/17/19 Time: 13:20 Rhythm: NSR [place]: Normal P-Wave: Present QRS: LBBB ST-T: Normal Comparison: NA - No Prior EKG EKG Interpretation Comments: Occasional PAC Course - Vital Signs Last Recorded V/S: Last Vital Signs Temp 36.4 C 02/17/19 12:44 Pulse 68 02/17/19 13:18 Resp 26 H 02/17/19 13:18 BP 135/71 02/17/19 13:18 Pulse Ox 90 L 02/17/19 12:44 Chen is an 84 year old female, hx of [place], gastric ulcer, trigeminal neuralgia, presents to the ED today with her daughter with sudden onset of severe abdominal pain, nausea and vomiting. Please refer to HPI and focused exam. Patient arrives here pale, screaming in pain to her abdomen with any movement, pressure stable but initial concern for aortic dissection. Bedside US done shortly after arrival, no obvious rupture seen, ? free fluid in lower abdomen. Patient very tender with palpation to abdomen. With hx of gastric ulcer, concern for gastric perforation. PIV established, fluids initiated and patient to CT scan for chest, abdomen and pelvis. Patient was given a dose of morphine for pain. Blood work returns with HGB of 10.3, white count of 3.9, plt count is stable, INR of 1.45, CMP with potassium of 3.2, gap of 19, BUN of 45, creatinine of 1.2 and GFR of 43. Patient has total bilirubin 1.9 with AST of 77 and ALT of 90, alkaline phosphatase of 122. EKG with NSR with occasional PAC and troponin of 0.045. CT scan of chest, abdomen, and pelvis shows a right lung mass with perihilar lymphadenopathy, abdominal ascites, several other small concerning areas in chest. Concerns for metastasis with uncertain primary source. I discussed findings with patient and daughter, request for transfer to [facility], patient accepted by Dr. Motley, will be transferred in stable condition. - Orders/Labs/Meds Orders: Active Orders 24 hr Category Date Time Status EKG Documentation Completion [RC] ASDIRECTED Care 02/17/19 12:32 Active ANTIBODY IDENTIFICATION [BBK] Stat Lab 02/17/19 12:25 Results PATIENT RETYPE [BBK] Stat Lab 02/17/19 12:25 Results TYPE AND SCREEN [BBK] Stat Lab 02/17/19 12:25 Results Iopamidol [Isovue-300 (61%)] Med 02/17/19 12:45 Active 100 ml IV . DIRECTED EKG 12 Lead [EK] Routine Ther 02/17/19 12:32 Ordered Medication Orders Iopamidol (Isovue-300 (61%)) 100 ml IV . DIRECTED ANAYELI Stop: 02/17/19 16:00 Last Admin: 02/17/19 13:01 Dose: 100 ml Labs: Laboratory Tests 02/17/19 02/17/19 02/17/19 Range/Units 12:25 12:25 12:25 WBC 3.9 L (4.5-11.0) K/uL RBC 3.76 (3.30-5.50) M/uL Hgb 10.3 L (12.0-15.0) g/dL Hct 33.0 L (36.0-48.0) % MCV 88 (80-98) fL MCH 27 (27-31) pg MCHC 31 L (32-36) % Plt Count 191 (150-400) K/uL Neut % (Auto) 79 H (36-66) % Lymph % (Auto) 13 L (24-44) % [place] % (Auto) 8 H (2-6) % Eos % (Auto) 0 L (2-4) % Baso % (Auto) 0 (0-1) % PT 15.6 H (9.5-12.0) sec INR 1.45 H (0.80-1.20) Sodium 142 (140-148) mmol/L Potassium 3.2 L (3.6-5.2) mmol/L Chloride 106 (100-108) mmol/L Carbon Dioxide 20 L (21-32) mmol/L Anion Gap 19.2 H (5.0-14.0) mmol/L BUN 45 H D (7-18) mg/dL Creatinine 1.2 H D (0.6-1.0) mg/dL Est Cr Clr Drug Dosing 25.96 mL/min Estimated GFR (MDRD) 43 L (>60) Glucose 110 H (74-106) mg/dL Calcium 8.9 (8.5-10.1) mg/dL Total Bilirubin 1.9 H D (0.2-1.0) mg/dL AST 77 H D (15-37) U/L ALT 90 H (12-78) U/L Alkaline Phosphatase 122 H (46-116) U/L Troponin I 0.045 (0.000-0.056) ng/mL Total Protein 6.0 L (6.4-8.2) g/dL Albumin 2.7 L (3.4-5.0) g/dL Globulin 3.3 (2.3-3.5) g/dL Albumin/Globulin Ratio 0.8 L (1.2-2.2) Blood Type Gel Antibody Screen 02/17/19 Range/Units 12:25 WBC (4.5-11.0) K/uL RBC (3.30-5.50) M/uL Hgb (12.0-15.0) g/dL Hct (36.0-48.0) % MCV (80-98) fL MCH (27-31) pg MCHC (32-36) % Plt Count (150-400) K/uL Neut % (Auto) (36-66) % Lymph % (Auto) (24-44) % [place] % (Auto) (2-6) % Eos % (Auto) (2-4) % Baso % (Auto) (0-1) % PT (9.5-12.0) sec INR (0.80-1.20) Sodium (140-148) mmol/L Potassium (3.6-5.2) mmol/L Chloride (100-108) mmol/L Carbon Dioxide (21-32) mmol/L Anion Gap (5.0-14.0) mmol/L BUN (7-18) mg/dL Creatinine (0.6-1.0) mg/dL Est Cr Clr Drug Dosing mL/min Estimated GFR (MDRD) (>60) Glucose (74-106) mg/dL Calcium (8.5-10.1) mg/dL Total Bilirubin (0.2-1.0) mg/dL AST (15-37) U/L ALT (12-78) U/L Alkaline Phosphatase (46-116) U/L Troponin I (0.000-0.056) ng/mL Total Protein (6.4-8.2) g/dL Albumin (3.4-5.0) g/dL Globulin (2.3-3.5) g/dL Albumin/Globulin Ratio (1.2-2.2) Blood Type A POSITIVE Gel Antibody Screen Positive A* Meds: Medications Generic Name Dose Route Start Last Admin Trade Name Edgardoq PRN Reason Stop Dose Admin Iopamidol 100 ml 02/17/19 12:45 02/17/19 13:01 Isovue-300 (61%) IV 02/17/19 16:00 100 ml . DIRECTED ANAYELI Administration Discontinued Medications Generic Name Dose Route Start Last Admin Trade Name Freq PRN Reason Stop Dose Admin Sodium Chloride 1,000 mls @ 999 mls/hr 02/17/19 12:29 02/17/19 12:55 Normal Saline IV 02/17/19 13:29 999 mls/hr .BOLUS ONE Administration Sodium Chloride 80 mls @ 3.5 mls/sec 02/17/19 12:32 02/17/19 13:00 Normal Saline IV 02/17/19 12:33 3 mls/sec ONETIME ONE Administration Morphine Sulfate 2 mg 02/17/19 12:35 02/17/19 12:52 Morphine IVPUSH 02/17/19 12:36 2 mg ONETIME ONE Administration Sodium Chloride 10 ml 02/17/19 12:32 02/17/19 13:00 Saline Flush FLUSH 02/17/19 12:33 10 ml ONETIME ONE Administration Departure - Departure Time of Disposition: 15:30 Disposition: DC/Tfer to Acute Hospital 02 Condition: Fair Clinical Impression: Carcinoma of lung Qualifiers: Laterality: right Qualified Code(s): C34.91 - Malignant neoplasm of unspecified part of right bronchus or lung Ascites Qualifiers: Ascites type: other type Qualified Code(s): R18.8 - Other ascites Abdominal pain Qualifiers: Abdominal location: periumbilical Qualified Code(s): R10.33 - Periumbilical pain - Discharge Information Referrals: Hernandez Chance MD [Primary Care Provider] - Forms: ED Department Discharge Additional Instructions: Chen has a mass on her CT scan that was identified by the radiologist as a Carcinoma. This is a form of lung cancer. Likely this has metastasized from another primary source of cancer that was not seen on the CT scan. The CT scan also showed what we called ascites which is fluid in the abdomen, this along with Chen's liver function tests may indicate that her liver is also involved from a cancer stand point, however, this is not certain and this is what they will have to further investigate at [facility]. - My Orders Last 24 Hours: My Active Orders 02/17/19 12:25 ANTIBODY IDENTIFICATION [BBK] Stat PATIENT RETYPE [BBK] Stat TYPE AND SCREEN [BBK] Stat 02/17/19 12:32 EKG Documentation Completion [RC] ASDIRECTED EKG 12 Lead [EK] Routine 02/17/19 12:45 Iopamidol [Isovue-300 (61%)] 100 ml IV . DIRECTED - Assessment/Plan Last 24 Hours: My Active Orders 02/17/19 12:25 ANTIBODY IDENTIFICATION [BBK] Stat PATIENT RETYPE [BBK] Stat TYPE AND SCREEN [BBK] Stat 02/17/19 12:32 EKG Documentation Completion [RC] ASDIRECTED EKG 12 Lead [EK] Routine 02/17/19 12:45 Iopamidol [Isovue-300 (61%)] 100 ml IV . DIRECTED
[2019-02-17] MEDS ORDERED: Iopamidol 612 MG/ML 100 ML Bottle IV SCH (12:45)
[2019-02-17] MEDS: Sodium Chloride 0.9% 10 ML Syringe FLUSH ONE ×2 (12:55→13:00)
--- NOTE | 2019-02-17 13:57 | CRLCT ---
INDICATION: Abdominal pain. History of gastric ulcer. Free fluid on ultrasound. TECHNIQUE: Volumetric helical scanning of the thorax, abdomen and pelvis was performed with oral contrast material and 100 cc of Isovue 300 contrast material IV. Coronal and sagittal reconstructions were obtained. COMPARISON: None. FINDINGS: A 3.9 x 3.8 x 3.3 cm mass consistent with a bronchogenic carcinoma is demonstrated in the perihilar right upper lobe. Several small nodular infiltrates in the right upper lobe peripheral to this mass presumably represent postobstructive pneumonia. Mild right hilar lymphadenopathy is noted. No mediastinal or left hilar adenopathy is apparent. Small pleural effusions are present bilaterally. Emphysema is noted. The lungs are otherwise clear except for passive atelectasis in the left lower lobe. The heart is mild to moderately enlarged. Calcified coronary arterial plaque is noted. The aorta is ectatic/aneurysmal and tortuous. There is a small to moderate amount of ascites. The liver is normal in size and shape and is fatty. No bile duct dilation is evident. The spleen is within normal limits. The adrenal glands are unremarkable. The pancreas is within normal limits. The kidneys are unremarkable. No lymphadenopathy is evident. The bowel is unremarkable. An IUD is present in the uterus. Uterus is otherwise grossly negative. Neither ovary is identified with certainty. No lytic or blastic bone lesion is identified. A marked thoracolumbar levoscoliosis is noted. IMPRESSION: 1. 3.9 x 3.8 x 3.3 cm perihilar right upper lobe mass consistent with bronchogenic carcinoma. Presumed metastatic adenopathy in the right hilum. No distant metastatic lesion evident. 2. Mild postobstructive pneumonia in the right upper lobe. 3. Small to moderate amount of ascites, nonspecific. 4. Small pleural effusions bilaterally. 5. Mild to moderate cardiomegaly. 6. Emphysema. 7. Ectatic/aneurysmal and tortuous aorta. 8. Marked scoliosis. Please note that all CT scans at this facility use dose modulation, iterative reconstruction, and/or weight-based dosing when appropriate to reduce radiation dose to as low as reasonably achievable. Dictated by Regino Carranza MD @ Feb 17 2019 1:38PM Signed by Dr. Regino Carranza @ Feb 17 2019 1:55PM
[2019-02-17 15:41] VITALS: BP 152/88
== END 2019-02-17 16:46 ==
LOC: JP.ED 12:23
DX: R18.8 Other ascites (principal); C34.91 Malignant neoplasm of unspecified part of right bronchus or lung; R10.33 Periumbilical pain; I10 Essential (primary) hypertension; I25.2 Old myocardial infarction; I25.10 Atherosclerotic heart disease of native coronary artery without angina pectoris; F41.9 Anxiety disorder, unspecified; Z86.73 Personal history of transient ischemic attack (TIA), and cerebral infarction without residual deficits; Z79.82 Long term (current) use of aspirin; Z79.899 Other long term (current) drug therapy
CPT/HCPCS: 36415; 71260; 74177; 80053; 84484; 85025; 85610; 86850; 86870; 86900; 86901; 86902; 86970; 93005; 96361; 96374; 99285; J2270; J7030; Q9967